=== PATIENT | male | born 1980 | race Caucasian/White ===

== ENCOUNTER 2017-07-22 04:38 | Emergency (ER) | payer BC ==
[~2017-07-22] VITALS: Ht 172.7 cm; Wt 81.6 kg
[2017-07-22 04:39] VITALS: TEMP 36.6; Ht 172.7 cm; Wt 81.6 kg
[2017-07-22] MEDS ORDERED: PROPARACAINE HCL 0.5% OP SOLN 15 ML BTL ONE (04:53)
[2017-07-22] MEDS ORDERED: AMOX875T PO (05:10)
--- NOTE | 2017-07-22 05:11 | EMERGENCY ROOM VISIT NOTE ---
History First contact with patient: 04:43 Chief Complaint: EYE ASSESSMENT Stated Complaint: EYE PAIN History of Present Illness The patient is a 36 year old male who presents to the Emergency Room with complaints of right eye pain/irritation. The patient reports that 2 days ago, he noticed some slight irritation of his right eye. He states this felt like something was stuck inside his eye. He removed his contacts but states his symptoms have gradually worsened. He states that yesterday, he noticed increased swelling of his eyelid. He bought an eye wash kit and washed out his eye. He states that this morning, he had increased swelling and burning in the eye. He rates the discomfort a 3/10. He applied ice to the eye with no relief. He does state he was recently with his nephew who was ill. His tetanus is not up-to-date. He denies any changes in his vision. He has not been using any new contacts or contact solutions. Review of Systems A complete 10 point review of systems was reviewed with the patient with pertinent positives and negatives as per history of present illness. All else were negative. Social History Smoking Status: Never Smoker Housing Status: lives with significant other Current/Historical Medications Scheduled Amoxicillin & Pot Clavulanate (Augmentin 875-125 mg), 1 TAB PO BID Physical Exam Vital Signs Date Time Temp Pulse Resp B/P (MAP) Pulse Ox O2 Delivery O2 Flow Rate FiO2 07/22/17 05:28 74 18 121/79 99 Room Air 07/22/17 04:39 36.6 72 18 123/61 99 Room Air Physical Exam VITALS: Vitals are noted on the nurse's note and reviewed by myself. Vital signs stable. GENERAL: This is a 36-year-old male, in no acute distress, well-developed well- nourished. SKIN: The skin was without rashes. HEAD: Normocephalic atraumatic. EARS: External auditory canals clear, tympanic membranes pearly royal without erythema or effusion bilaterally. EYES: Visual acuity 20/25 right eye, 20/20 left eye. There is mild edema, erythema and tenderness of the upper lid of the right eye. PERRLA. Extraocular movements intact and nonpainful. Slit-lamp examination shows no foreign bodies of the right cornea. Examination under UV light shows no fluorescein uptake. NEURO: Patient was alert and oriented to person place and time. Medical Decision & Procedures Medications Administered Medications (Trade) Dose Ordered Sig/Angus Route Start Time Stop Time Status Last Admin Dose Admin Ciprofloxacin HCl (Ciprofloxacin 0.3% Op Soln) 2 drops Q4H ONCE OP 07/22/17 05:15 07/22/17 05:16 DC 07/22/17 05:18 2 DROPS Diphenhydramine HCl (Benadryl Cap) 25 mg NOW STAT PO 07/22/17 05:07 07/22/17 05:09 DC 07/22/17 05:18 25 MG Diphtheria/ Pertussis/Tetanus Vacc (Adacel Inj) 0.5 ml ONCE ONCE IM. 07/22/17 05:15 07/22/17 05:16 DC 07/22/17 05:20 0.5 ML Medical Decision Differential diagnosis includes corneal ulcer, corneal abrasion, conjunctivitis , orbital cellulitis, preseptal cellulitis, allergic reaction, among others. The patient was evaluated as above. Slit-lamp exam showed no foreign bodies and no fluorescein uptake to suggest corneal abrasion or ulcer. Patient does have some edema of the upper eyelid. EOMs are intact and there is no evidence of an orbital cellulitis. It is unclear if this edema is due to irritation of the eye or an infectious process. I suspect the patient has been rubbing at the eye and he does admit to washing out the eye frequently. He was given Benadryl as this may help reduce swelling. He will be placed on Ciloxan drops for conjunctivitis. As I am unable to rule out any infectious cause of the swelling of the lid, I did offer him a prescription of Augmentin to start in the morning if his eyelid is still swollen. His tetanus was updated. He was instructed to follow-up with an technology lab teacher/buckle frame shaper for persistent symptoms or other concerns. He was instructed to return to the ED with worsening symptoms or vision changes. He verbalized understanding and was discharged home in good condition. Medication Reconcilliation Current Medication List: was personally reviewed by me Blood Pressure Screening Patient's blood pressure: Normal blood pressure Impression Primary Impression: Conjunctivitis Departure Information Dispostion Home / Self-Care Condition GOOD Prescriptions Amoxicillin & Pot Clavulanate (Augmentin 875-125 mg) 1 Tab Tab 1 TAB PO BID for 7 Days, #14 TAB Prov: Maribell Andre ., JONE 07/22/17 Referrals No Doctor, Assigned (PCP) Patient Instructions My [facility] Additional Instructions You have been treated in the Emergency Department today for your conjunctivitis. You have been prescribed Ciloxan eye drops. This is an antibiotic eye drop. You should use 2 drops in the affected eye every 2 hours while awake for the first 2 days, then every 4 hours for the remaining 5 days. This is a total of a 7-day course for these antibiotic eye drops. Start the Augmentin tomorrow if the swelling has not improved after taking the Benadryl. For pain control, you can use the following [id number] medicines (if >12 yo): - Regular strength (325mg/tab) Tylenol (acetaminophen) 2 tabs every 4-6 hours as needed. Do not exceed 12 tablets in a 24 hour period. Avoid taking more than 4 grams (4000 mg) of Tylenol per day. This includes any other sources of acetaminophen you may take on a regular basis. - Regular strength (200 mg/tab) Advil (ibuprofen) 1-2 tabs every 4-6 hours as needed. Do not exceed a dose of 3200 mg per day. You should relax in a quiet, dark place for the rest of the day. You should wear sunglasses while outside for the next few days until your eyes are not as sensitive to the light. Follow-up with your technology lab teacher or buckle frame shaper for further evaluation if you have persistent symptoms in 2-3 days. Return to the Emergency Department if your current symptoms worsen despite treatment course outlined above, or if you develop any of the following symptoms : intractable pain, visual disturbances, loss of vision, increased redness, swelling, drainage, or if you develop a fever. Problem Qualifiers Primary Impression: Conjunctivitis Conjunctivitis type: unspecified Laterality: right Qualified Codes: H10.9 - Unspecified conjunctivitis
[2017-07-22] MEDS ORDERED: CIPROFLOXACIN HCL 0.3% OP SOLN 2.5 ML BTL OP ONE (05:15)
[2017-07-22] MEDS ORDERED: DIPHTHERIA/TETANUS/PERTUSSIS 0.5 ML SYR/VIAL IM. ONE (05:15)
[2017-07-22 05:28] VITALS: BP 121/79; PULSE 74; O2SAT 99
== END 2017-07-22 05:29 | disposition home or self-care (01) ==
LOC: C.EDB 04:38 → C.EDA 05:29
DX: H10.9 Unspecified conjunctivitis (principal); Z23 Encounter for immunization